=== PATIENT | male | born 1970 | race American Indian/Alaskan Native ===

== ENCOUNTER 2021-06-30 21:28 | Emergency (ER) | payer MEDICARE, SELFPAY ==
[2021-06-30 21:29] VITALS: BP 134/76; PULSE 72; RESP 16; TEMP 36.4; O2SAT 96; BMI 26.7
[2021-06-30 22:18] VITALS: O2SAT 97
[2021-06-30 22:22] VITALS: BP 136/87; PULSE 67; RESP 16; TEMP 37.1; O2SAT 97; O2SAT 98
--- NOTE | 2021-06-30 22:45 | RAD_ITS ---
STUDY: X-RAY CHEST REASON FOR EXAM: Male, 50 years old. Cough. Dyspnea and fever. TECHNIQUE: Single AP portable view of the chest. COMPARISON: None. FINDINGS: The lungs are well expanded. There is chronic appearing interstitial coarsening without consolidation or mass. There is no demonstrated pleural abnormality. Normal size heart. Normal mediastinum and geno. Normal visualized pulmonary arteries. Normal visualized aortic arch and descending thoracic aorta. There is anterior fusion of the upper cervical spine. There is degenerative osteoarthritis of the bilateral shoulders. There is no demonstrated abnormality of the visualized soft tissue structures of the upper abdomen. RAD/Chest 1 View (Portable) IMPRESSION: No acute cardiopulmonary disease. Electronically Signed: Vinnie Levine DO at 23:27 EST Tel [phone], Service support ,
[2021-06-30 22:55] LABS: Absolute Lymphocyte Count 1.71 X10^3/uL (0.83-4.51); Absolute Neutrophil Count 6.5 X10^3/uL (2.0-7.7); Basophil# 0.03 X10^3/uL; Basophil% 0.3 % (0-1); Eosinophil# 0.13 X10^3/uL; Eosinophils% 1.3 % (0-5); Hematocrit 47.1 % (40-54); Hemoglobin 15.9 g/dL (13.0-16.5); Lymphocyte # 1.71 X10^3/ul (0.83-4.51); Lymphocyte % 17.4 % (19-41); Mean Corp Hgb Conc 33.8 g/dL (32-36); Mean Corpuscular Hgb 30.1 pg (27.0-32.0); Mean Platelet Vol. 10.4 fl (6.2-12.0); Monocyte# 1.43 X10^3/uL; Monocyte% 14.6 % (0-10); NRBC Flagged by Analyzer 0 % (0-5); Neutrophil # 6.48 X10^3/uL (2.7-7.7); Platelet Count 207 K/mm3 (150-450); RBC Distribution Width CV 12.9 % (11.6-14.6); RBC Distribution Width SD 42.3 fl (35.1-43.9); Red Blood Count 5.29 M/mm3 (4.6-6.2); White Blood Count 9.8 K/mm3 (4.4-11.0)
[2021-06-30 23:15] LABS: ALB/GLOB Ratio 0.6 RATIO (0.9-2.4); AST(SGOT) 18 U/L (15-37); Alanine Aminotransfer ALT/SGPT 35 U/L (16-61); Albumin, Serum 2.7 g/dL (3.2-5.0); Alkaline Phosphatase 91 U/L (45-117); Anion Gap 5 (5-15); BUN 9 mg/dL (7-18); BUN/Creat Ratio 10.6 RATIO (10-20); Calcium,Total 8.5 mg/dL (8.5-10.1); Chloride 106 mmol/L (98-107); Creatinine, Serum 0.85 mg/dL (0.70-1.30); EST Glomerular Filtration Rate 101 mL/min (>60); Est Glom Filt Rate - Afr Amer 122 mL/min (>60); Estimated Creatinine Clearance 114.12 ml/min; Globulin 4.4 g/dL (2.2-4.2); Glucose 93 mg/dL (74-106); Potassium 3.7 mmol/L (3.5-5.1); Protein, Total 7.1 g/dL (6.4-8.2); Sodium Level 138 mmol/L (136-145)
--- NOTE | 2021-06-30 23:18 | EX.ED.DYSGE1 ---
HPI History of Present Illness Chief Complaint: Shortness of Breath Informant: patient Onset/Context/Timing Onset: Yesterday Context: Gradual Onset Current Severity: Mild Maximum Severity: Moderate Narrative Narrative: Patient presents with shortness of breath and cough that started yesterday. He states he does feels very fatigued and tired. He did note a fever at home. He does report green sputum with his cough. He does not know of any Covid exposures. He was not vaccinated. PFSH PFS Medical History Cervical vertebral fusion Medical History no medical history Home Medications dexamethasone [Decadron] 6 mg PO DAILY #9 tab 07/01/21 [Rx Last Taken Unknown] Allergy/AdvReac Type Severity Reaction Status Date / Time Penicillins Allergy PT UNSURE Verified 06/30/21 21:32 OF REACTION Family History no significant family his Social History Smoking Status: Smoker, status unknown tobacco type: cigarettes ROS ROS ED Constitutional Constitutional ED: Reports fever(s) and sweats; Denies chills Eyes Eyes: Denies change in vision ENT ENT ED: Denies sore throat Cardiovascular Cardiovascular: Denies chest pain Respiratory/Chest Respiratory/Chest: Reports cough, dyspnea and sputum Gastrointestinal Gastrointestinal: Denies abdominal pain, diarrhea, nausea or vomiting Genitourinary Genitourinary ED: Denies dysuria Musculoskeletal Musculoskeletal: Reports myalgias; Denies back pain Integumentary Denies rash Neurologic Neurologic: Denies headache(s) or weakness Allergic/Immunologic Allergic/Immunologic ED: Denies urticaria EXAM Physical Exam Const Vital Signs: 06/30/21 21:29 06/30/21 22:18 06/30/21 22:22 Temperature 97.5 F L 98.8 F Temperature Source Temporal Temporal Pulse Rate 72 67 Respiratory Rate 16 16 Respiratory Effort Short of Breath Blood Pressure 134/76 H 136/87 H Blood Pressure Mean 95 103 Pulse Ox 96 97 Oxygen Delivery Method Room Air Room Air Room Air 06/30/21 23:45 07/01/21 00:33 07/01/21 01:12 Temperature Temperature Source Pulse Rate 61 79 74 Respiratory Rate 16 22 H 16 Respiratory Effort Blood Pressure 138/86 H 114/73 135/81 H Blood Pressure Mean 103 86 Pulse Ox 95 90 98 Oxygen Delivery Method Room Air Room Air Positive well nourished and well developed General Appearance ED: well developed HEENT Reports normocephalic and head/scalp atraumatic Eyes PERRL and EOMs intact bilaterally Neck supple Chest Wall inspection of chest normal and palpation of chest normal Resp normal respiratory effort and clear to auscultation bilaterally Cardio regular rate and regular rhythm GI normal to inspection, nondistended, normoactive bowel sounds Palpation: soft Extremity normal to inspection Neuro oriented x3 and no sensory deficits noted Sensorium / Orientation: alert Motor Exam: strength 5/5 throughout Psych mental status grossly normal Skin no rashes or lesions noted MDM MDM MDM Narrative Medical decision making narrative: Lab work, chest x-ray, Covid swab obtained. Lab Data Attestation: I reviewed the patient's lab results. Labs: Laboratory Results - last 24 hr 06/30/21 06/30/21 06/30/21 22:10 22:10 22:10 WBC 9.8 RBC 5.29 Hgb 15.9 Hct 47.1 MCV 89.0 MCH 30.1 MCHC 33.8 RDW Std Deviation 42.3 RDW Coeff of Antonio 12.9 Plt Count 207 MPV 10.4 Immature Gran % (Auto) 0.400 Neut % (Auto) 66.0 Lymph % (Auto) 17.4 L [place] % (Auto) 14.6 H Eos % (Auto) 1.3 Baso % (Auto) 0.3 Absolute Neuts (auto) 6.5 Absolute Lymphs (auto) 1.71 Nucleated RBC % 0 D-Dimer Quant (PE/DVT) Sodium 138 Potassium 3.7 Chloride 106 Carbon Dioxide 27.0 Anion Gap 5 BUN 9 Creatinine 0.85 Estim Creat Clear Calc 114.12 Est GFR (MDRD) Af Amer 122 Est GFR (MDRD) Non-Af 101 BUN/Creatinine Ratio 10.6 Glucose 93 Lactic Acid 1.0 Calcium 8.5 Total Bilirubin 0.30 AST 18 ALT 35 Alkaline Phosphatase 91 Total Protein 7.1 Albumin 2.7 L Globulin 4.4 H Albumin/Globulin Ratio 0.6 L 06/30/21 23:12 WBC RBC Hgb Hct MCV MCH MCHC RDW Std Deviation RDW Coeff of Antonio Plt Count MPV Immature Gran % (Auto) Neut % (Auto) Lymph % (Auto) [place] % (Auto) Eos % (Auto) Baso % (Auto) Absolute Neuts (auto) Absolute Lymphs (auto) Nucleated RBC % D-Dimer Quant (PE/DVT) 1.08 H* Sodium Potassium Chloride Carbon Dioxide Anion Gap BUN Creatinine Estim Creat Clear Calc Est GFR (MDRD) Af Amer Est GFR (MDRD) Non-Af BUN/Creatinine Ratio Glucose Lactic Acid Calcium Total Bilirubin AST ALT Alkaline Phosphatase Total Protein Albumin Globulin Albumin/Globulin Ratio Covid: Positive Radiography Chest X-Ray - ED: 1 View, Read by ED Physician and Chronic Changes Diagnostic Testing: Clinical Impression(s) from Imaging Studies Chest X-Ray 06/30/21 22:45 IMPRESSION: No acute cardiopulmonary disease. Electronically Signed: Vinnie Levine DO at 23:27 EST Tel [phone], Service support , Chest CTA 06/30/21 23:41 IMPRESSION: No pulmonary embolism or other acute cardiopulmonary abnormality. Individualized dose optimization techniques were used for this CT. at 0027 Reported and signed by: Chaz Brewster MD Electronically Signed: Chaz Brewster MD at 0:26 EST Tel , Service support , Treatment and Re-Evaluation Comments:: Patient's Covid test does return positive. Lab work remarkable only for mildly elevated D-dimer at 1.08. Chest x-ray reveals no focal infiltrate per my interpretation. CTA of the chest is obtained that reveals no infiltrate and no PE. Test results discussed with the patient. He will be treated with a course of Decadron given his respiratory symptoms. He was also referred for monoclonal antibody treatment. Discharge Plan Triage Chief Complaint: Shortness of Breath ED Provider: Mariza Putnam Dx/Rx/DC Orders Clinical Impression: COVID-19 Instructions: Coronavirus Disease 2019 (COVID-19): Overview, Coronavirus Disease 2019 (COVID-19): Caring for Yourself or Others Prescriptions: New dexamethasone [Decadron] 6 mg tablet 6 mg PO DAILY Qty: 9 RF: 0 Other Ambulatory Orders: COVID Outpatient Monoclonal Antibody Referral (Routine) Timeframe: 1 Day Facility: [facility] - Location: [facility] Ordered By: Dr. Mariza Putnam Primary Care Provider: Care Physician,No Primary Referrals: Vignesh Moreno MD [STAFF PHYSICIAN] - 1-2 Weeks Care Physician,No Primary [Primary Care Provider] - Disposition Disposition: Home, Self Care Discharge Date/Time: 07/01/21 01:15
[2021-06-30 23:39] LABS: D-Dimer Quantitative (DVT/PE) 1.08 FEU/ug/m (0.27-0.49)
--- NOTE | 2021-06-30 23:41 | CT_ITS ---
EXAM: CT ANGIOGRAPHY CHEST WITHOUT AND WITH INTRAVENOUS CONTRAST : 1970 CLINICAL INDICATION: sob, elevated d-dimer TECHNIQUE: Helically acquired angiography images were obtained of the chest without and with intravenous contrast. This CT exam was performed using one or more of the following dose reduction techniques: automated exposure control, adjustment of the mA and/or kV according to patient size, and/or use of iterative reconstruction technique. This report was created using [employer] report generation technology. MIP reconstructed images were created and reviewed. CONTRAST: IV 75mL [id number] COMPARISON: None. FINDINGS: PULMONARY ARTERIES: Unremarkable. Normal in caliber. No evidence of pulmonary embolism. AORTA: Unremarkable. Normal in caliber. No evidence of dissection. GREAT VESSELS OF AORTIC ARCH: Unremarkable. Normal in caliber. No evidence of dissection. LUNGS AND PLEURAL SPACES: Unremarkable. No mass. No consolidation or edema. No pleural effusion or thickening. No pneumothorax. HEART: Unremarkable. Heart size is normal. No pericardial effusion. No signs of right heart strain, ratio of right ventricle to left ventricle measures less than 1. MEDIASTINUM: Unremarkable. No mediastinal or hilar adenopathy. Esophagus is unremarkable. No hiatal hernia. THYROID: Unremarkable. No thyroid lesions. BONES/JOINTS: Unremarkable. No suspicious lytic or blastic abnormality. CT/CTA Chest W/WO Contrast IMPRESSION: No pulmonary embolism or other acute cardiopulmonary abnormality. Individualized dose optimization techniques were used for this CT. at 0027 Reported and signed by: Chaz Brewster MD Electronically Signed: Chaz Brewster MD at 0:26 EST Tel , Service support ,
[2021-06-30 23:45] VITALS: BP 138/86; PULSE 61; RESP 16; O2SAT 95
[2021-07-01 00:33] VITALS: BP 114/73; PULSE 79; RESP 22; O2SAT 90
[2021-07-01] MEDS: dexAMETHasone 2 MG TABLET 6 MG PO (01:11)
[2021-07-01 01:12] VITALS: BP 135/81; PULSE 74; RESP 16; O2SAT 98
== END 2021-07-01 01:15 | disposition home or self-care (01) ==
PROVIDERS: Emergency Provider Emergency Medicine
DX: U07.1 COVID-19 (principal)
CPT/HCPCS: 71045; 71275; 80053; 83605; 85025; 85379; 87040; 87426; 99284; Q9967; A4216